=== PATIENT | male | born 1950 | race Caucasian/White ===

== ENCOUNTER → 2020-10-06 15:48 | Outpatient (CLI) | payer MEDICARE, OTHER, SELFPAY ==
--- NOTE | 2020-10-06 15:57 | DI.ECHO.S_ITS ---
[facility] +[facility]+ : : [address] : [address] : : : : [id number] : : : : Phone: [phone]+ Echocardiogram Report + + :Name: SHAQ STAFFORD Study Date: 10/06/2020 Height: 71 in : :[facility] ReadingLocation: Weight: 188 lb : : Gender: Male BSA: 2.1 m2 : :: 1950 Age: 70 yrs BP: 144/90 mmHg: :Reason For Study: DILATED CARDIOMYOPATHY : :Ordering Physician: RADHA, : :PARISA Performed By: Lexi Lambert : :Referring: PARISA GARCIA : + + Interpretation Summary Left ventricular systolic function appears mild??moderately reduced with an estimated ejection fraction of 40 to 45% with a mild dyssynchronous contraction pattern and mild global hypokinesis that appears worse apically. Contractility appears slightly less dynamic compared to the previous study. Diastolic function cannot be assessed because of concomitant valvular abnormality. The left ventricle is borderline enlarged but similar to the previous exam with borderline LVH. The right ventricle is mild to moderately enlarged with mildly reduced systolic function. Right ventricular systolic pressure is estimated at 31 mmHg with a CVP of around 3 mmHg, and is likely slightly higher compared to the previous study. There is severe left atrial enlargement and moderate to severe right atrial enlargement and both are slightly larger compared to the previous study. There is significant mitral valve calcification with probable mild mitral stenosis, slightly progressive since the previous study with a mean gradient of around 5 to 6 mmHg, up from 3 to 4 mmHg previously. There is trace mitral regurgitation. The aortic valve is mildly sclerotic with mild aortic regurgitation that is unchanged. There is no other significant valvular abnormality. There is trace tricuspid regurgitation that appears improved from the previous study. The ascending aorta and aortic arch are mildly enlarged but likely similar to the previous study. The patient was in sinus rhythm at 69-80 bpm during exam. Procedure: A two-dimensional transthoracic echocardiogram with color flow and Doppler was performed. The study quality was technically adequate. Comparison is made with the echocardiogram of 01/21/2016. The heart rate ranged between 69-80 bpm during the study. Left Ventricle: The left ventricle is borderline dilated. The estimated left ventricular end diastolic volume is 104 ml. There is borderline concentric left ventricular hypertrophy. This is similar compared to the previous study. Left ventricular systolic function is mildly reduced. The ejection fraction is estimated to be 40-45%. There is a mild dyssynchronous contraction pattern, consistent with a conduction abnormality. There is mild global hypokinesis of the left ventricle. But is worse apically. This is slightly progressive compared to the previous study. Diastolic function could not be accurately assessed due to confounding valvular disease. Right Ventricle: The right ventricle is mild to moderately dilated. Right ventricular systolic function is mildly reduced. This is slightly larger and less dynamic compared to the previous study. Atria: The left atrium is severely dilated. Both atria have mildly increased in size since the prior echo exam. The right atrium is moderate to severely dilated. There is no Doppler evidence for an interatrial shunt. Mitral Valve: There is moderate mitral annular calcification. The mitral valve leaflets are mildly calcified. Calcified mitral apparatus. There is mild mitral stenosis. The mitral valve mean gradient is 5.9 mmHg. This is slightly progressive compared to the previous study. There is trace mitral regurgitation. Aortic Valve: The aortic valve is trileaflet. The aortic valve is mildly calcified. There is mildly reduced leaflet mobility. There is no aortic valve stenosis. There is mild aortic regurgitation. This is unchanged compared to the previous study. Tricuspid Valve: The tricuspid valve leaflets are thin and pliable. There is trace tricuspid regurgitation. This is slightly less prominent compared to the previous study. The right ventricular systolic pressure is estimated to be at least 31 mmHg based on an estimated right atrial pressure of 3 mm Hg. Compared to the prior echo exam, there has been an increase in the severity of pulmonary hypertension. Pulmonic Valve: The pulmonic valve leaflets are thin and pliable; valve motion is normal. There is trace pulmonic regurgitation. Great Vessels: The aortic root is normal size. The ascending aorta is mildly enlarged. The aortic arch is mildly enlarged. This is unchanged compared to the previous study. The IVC is of normal diameter and collapses greater than 50% with a sniff. This suggests a low right atrial pressure of 3 mm Hg. Pericardium/ Pleura There is no pericardial effusion. There is no pleural effusion. MMode/2D Measurements & Calculations LVIDd: 4.8 cm LVOT diam: 2.2 cm LVIDs: 3.3 cm Ao root diam: 3.6 cm FS: 31.7 % asc Aorta Diam: 3.5 cm EPSS: 1.0 cm Ao Arch Diam (Prox Trans): 3.1 cm IVSd: 1.1 cm LVPWd: 1.0 cm LV tovar. diameter/BSA (cm/m^2): 2.4 LV sys. diameter/BSA (cm/m^2): 1.6 LA A2 area: 37.5 cm2 RA long axis: 6.1 cm LA A4 area: 35.1 cm2 RA area: 25.7 cm2 LA length (vol): 7.1 cm RA vol: 91.7 ml LA vol: 157.8 ml RA : 44.6 ml/m2 LA vol index: 76.8 ml/m2 IVC diam: 1.0 cm RVD1 (basal): 4.6 cm TAPSE: 1.7 cm Doppler Measurements & Calculations Ao V2 max: 109.6 cm/sec LVOT Max Myles: 85.3 cm/sec Ao V2 mean: 75.4 cm/sec LV V1 max P.9 mmHg Ao max P.8 mmHg LV V1 VTI: 17.8 cm Ao mean P.6 mmHg YUNIOR(I,D): 3.3 cm2 Ao V2 VTI: 20.9 cm YUNIOR(V,D): 3.0 cm2 sev ratio: 0.85 YUNIOR indexed to BSA (cm^2/m^2): 1.6 MV E max myles: 140.0 cm/sec TR max myles: 263.7 cm/sec MV A max myles: 138.7 cm/sec TR max P.8 mmHg MV E/A: 1.0 PA V2 max: 47.1 cm/sec Med Peak E' Myles: 4.7 cm/sec PA V2 mean: 31.3 cm/sec E/E' med: 29.9 PA mean P.45 mmHg Lat Peak E' Myles: 6.9 cm/sec PA pr(Accel): 36.2 mmHg E/E' lat: 20.2 E/e' average: 25.0 MV dec time: 0.40 sec MVA(VTI): 1.3 cm2 MV V2 mean: 114.8 cm/sec SV(LVOT): 68.1 ml MV mean P.9 mmHg MV V2 VTI: 51.4 cm Reading Physician:06:06 PM
== END ==
PROVIDERS: Referring Provider Specialist; Visit Provider Specialist
DX: I08.0 Rheumatic disorders of both mitral and aortic valves (principal); I77.89 Other specified disorders of arteries and arterioles; I42.0 Dilated cardiomyopathy
CPT/HCPCS: 93306